=== PATIENT | female | born 1945 | race Caucasian/White ===

== ENCOUNTER → 2017-02-21 | Outpatient (CLI) | payer MEDICARE, BC ==
--- NOTE | 2017-02-21 14:12 | CT ---
EXAMINATION TYPE: CT cervical spine wo con DATE OF EXAM: 02/21/2017 COMPARISON: NONE HISTORY: Cervicalgia per order. Neck pain for one year per patient. CT DLP: 716 mGycm. Automated Exposure Control for Dose Reduction was Utilized. TECHNIQUE: CT scan of the cervical spine is obtained without contrast, axial images are obtained, sa gittal and coronal reformatted images are also reviewed. FINDINGS: Cervical spine is visualized in its entirety from C1 through upper thoracic levels, demonst rates satisfactory alignment without evidence of acute fracture or dislocation. Prevertebral soft ti ssue appears within normal limits. The C1-C2 articulation is within normal limits on the coronal eduin ges. Vertebral body heights are maintained. There is moderate to advanced disc space narrowing with subcho ndral cystic change and mild to moderate spurring C3-C4 through C6-C7 levels. Posterior spur disc com plex effacing anterior thecal sac at C6-C7 level on sagittal images. Review of axial images shows the C2-C3 level to appear within normal limits. Axial images at C3-C4 level show uncovertebral facet degenerative changes bilaterally causing mild to moderate bilateral neural foraminal narrowing. There is mild effacement anterior thecal sac due to p osterior disc herniation. Axial images at C4-C5 level show uncovertebral facet degenerative changes and posterior spur disc com plex with spondylolisthesis causing effacement of anterior thecal sac and mild to moderate right and moderate to severe left-sided neural foraminal narrowing. Axial images at C5-C6 level show posterior disc herniation effacing anterior thecal sac and causing m [id number]-djlyhebg bilateral neural foraminal narrowing. Axial images at C6-C7 level show right paracentral spur disc complex effacing anterior thecal sac and causing mild to moderate bilateral neural foraminal narrowing. Axial images at C7-T1 level are felt within normal limits. Thyroid gland is felt within normal limits. There is background mild emphysematous change in visualiz ed lung apices. IMPRESSION: Multilevel degenerative changes in the cervical spine as detailed above, C3-C4 through C6 -C7 levels.
== END ==
LOC: RADCTMAIN 12:16
PROVIDERS: ATTEND Family Medicine
DX: M47.812 Spondylosis without myelopathy or radiculopathy, cervical region (principal)
CPT/HCPCS: 72125

== ENCOUNTER → 2017-02-22 | Outpatient (CLI) | payer MEDICARE, BC ==
--- NOTE | 2017-02-23 10:27 | MM ---
Reason for exam: screening (asymptomatic). Last mammogram was performed 3 years and 5 months ago. History: Patient is postmenopausal. Excisional biopsy of the left breast. Physical Findings: A clinical breast exam by your physician is recommended on an annual basis and results should be correlated with mammographic findings. MG 3D Screening Mammo W/Cad Bilateral CC and MLO view(s) were taken. Prior study comparison: October 03, 2013, bilateral MG screening mammo w CAD. April 15, 2010, bilateral digital screening mammo w/CAD. There are scattered fibroglandular densities. There is chronic nodularity bilaterally axilla obscured benign lymph nodes. There is no discrete abnormality. ASSESSMENT: Benign, BI-RAD 2 RECOMMENDATION: Routine screening mammogram of both breasts in 1 year.
== END | disposition home or self-care (01) ==
LOC: RADMAMWWP 16:35
PROVIDERS: ATTEND Family Medicine
DX: Z12.31 Encounter for screening mammogram for malignant neoplasm of breast (principal)
CPT/HCPCS: 77063; G0202

== ENCOUNTER → 2017-05-12 | Outpatient (CLI) | payer BC, MEDICARE ==
--- NOTE | 2017-05-12 08:01 | US ---
EXAMINATION TYPE: US gallbladder DATE OF EXAM: 05/12/2017 COMPARISON: CT CLINICAL HISTORY: R10.11 RT upper quad pain. Pt states diarrhea post prandial EXAM MEASUREMENTS: Liver Length: 16.7 cm Gallbladder Wall: 0.2 cm CBD: 0.7 cm Right Kidney: 9.0 x 3.7 x 4.2 cm Pancreas: 3mm pancreatic duct visualized, tail obscured by overlying bowel gas Liver: wnl Gallbladder: wnl Evidence for sonographic Torres's sign: No CBD: wnl for pt's age Right Kidney: Possible parapelvic cyst= 1.8 x 1.4 x 2.1 cm versus extrarenal pelvis Right kidney shows normal cortical medullary differentiation. There is no ascites. Mild prominence of the pancreatic duct, consider follow-up. Common bile duct upper limit of normal for patient's age. IMPRESSION: Some minimal limitations to the exam. No abnormality evident to account for patient's sym ptoms. Additional findings above.
== END | disposition home or self-care (01) ==
LOC: RADUSWWP 07:19
PROVIDERS: ATTEND Family Medicine
DX: R94.8 Abnormal results of function studies of other organs and systems (principal); R10.11 Right upper quadrant pain
CPT/HCPCS: 76705

== ENCOUNTER → 2017-05-24 | Outpatient (CLI) | payer MEDICARE ==
--- NOTE | 2017-05-24 16:37 | XR ---
EXAMINATION TYPE: XR chest 2V DATE OF EXAM: 05/24/2017 COMPARISON: NONE HISTORY: Left-sided chest pain for 2 weeks after fall injury. TECHNIQUE: Frontal and lateral views of the chest are obtained. FINDINGS: There is chronic parenchymal change without suspicious focal air space opacity, pleural ef fusion, or pneumothorax seen. The cardiac silhouette size is within normal limits with ectatic thora cic aorta. Underlying scoliosis is present. IMPRESSION: Chronic changes without suspicious acute pulmonary process.
== END | disposition home or self-care (01) ==
LOC: RADXRMAIN 16:23
PROVIDERS: ATTEND Family Medicine
DX: R91.8 Other nonspecific abnormal finding of lung field (principal)
CPT/HCPCS: 71046

== ENCOUNTER → 2017-06-08 | Outpatient (CLI) | payer MEDICARE, BC ==
[2017-06-07 12:16] VITALS: BMI 33.1
[2017-06-08 12:47] VITALS: BP 132/75; PULSE 72; RESP 20
--- NOTE | 2017-06-08 13:27 | P.HPIM ---
History of Present Illness H&P Date: 06/08/17 Chief Complaint: neck pain This is a 71-year-old patient referred by Dr. Torres for chronic pain in neck and back of the head, no radiation to extremities. Patient has been taking medications from primary care physician including tramadol medications with some relief but does not like opioids. Patient denies adverse drug effects from medications. Patient also denies new-onset weakness, bowel/bladder incontinence, or any other signs or symptoms of cauda equina syndrome. There are no signs of acute intoxication, and no indications of medication diversion or overuse. Patient notes that pain worsens significantly with turning her head to left and right and improves with rest, ice and medication. Patient has used several types of medications for pain, including NSAIDS, OPIOIDS, TRAMADOL, and BENZOS (valium). Patient HAS NOT had surgery. Patient HAS NOT had injections previously. Patient HAS NOT had physical therapy recently. In addition to above, 13-point review of systems is also negative for chest pain , shortness of breath, changes in vision, changes in hearing, new onset weakness , abdominal pain, diarrhea, extreme fatigue, malaise, fever, skin changes, homicidal or suicidal ideation, or bowel or bladder incontinence. 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 Neuro: CN II-XII grossly intact, muscle strength lower extremities PRESERVED Past Medical History Past Medical History: GERD/Reflux, Hypertension Additional Past Medical History / Comment(s): numbness/tingling zeyad legs History of Any Multi-Drug Resistant Organisms: None Reported Past Surgical History: Section, Joint Replacement Additional Past Surgical History / Comment(s): zeyad knee replacement,zeyad cataracts Past Anesthesia/Blood Transfusion Reactions: No Reported Reaction Smoking Status: Former smoker - Past Family History Mother Family Medical History: Cancer Father History Unknown: Yes Medications and Allergies Home Medications Medication Instructions Recorded Confirmed Type Citalopram Hydrobromide 40 mg PO DAILY 06/07/17 06/08/17 History [Citalopram HBr] Gabapentin [Neurontin] 300 mg PO TID 06/07/17 06/08/17 History Losartan Potassium [Cozaar] 100 mg PO DAILY 06/07/17 06/08/17 History Multivit-Min/Iron/Folic/Lutein 1 each PO DAILY 06/07/17 06/08/17 History [Centrum Silver Women Tablet] Pantoprazole [Protonix] 40 mg PO DAILY 06/07/17 06/08/17 History amLODIPine BESYLATE [Norvasc] 10 mg PO DAILY 06/07/17 06/08/17 History Allergies Allergy/AdvReac Type Severity Reaction Status Date / Time hydrocodone [From Vicodin] Allergy Hallucinati Verified 06/07/17 12:06 ons Physical Exam Vitals: Vital Signs Pulse Resp BP Pulse Ox 06/08/17 12:39 72 20 132/75 98 Results Comments: MRI cervical spine without contrast demonstrates uncovertebral facet changes at the C3-C4 level, C4-C5 level. There is also posterior spur disc complex at the C4-C5 level causing effacement of the anterior thecal sac and moderate right and severe left-sided neural foraminal narrowing. At the C5-C6 level there is posterior disc herniation effacing the anterior thecal sac and causing mild to moderate bilateral neural foraminal narrowing. At the C6-C7 level there is right paracentral spur disc complex effacing the anterior thecal sac and causing moderate bilateral neural foraminal narrowing. Assessment and Plan (1) Neural foraminal stenosis of cervical spine Current Visit: Yes Status: Chronic Code(s): M99.81 - OTHER BIOMECHANICAL LESIONS OF CERVICAL REGION SNOMED Code(s): 734529631804 (2) Cervical spondylosis without myelopathy Current Visit: Yes Status: Chronic Code(s): M47.812 - SPONDYLOSIS W/O MYELOPATHY OR RADICULOPATHY, CERVICAL REGION SNOMED Code(s): 145787803 (3) Chronic pain syndrome Current Visit: Yes Status: Chronic Code(s): G89.4 - CHRONIC PAIN SYNDROME SNOMED Code(s): 036512185 Plan: Plan: 1. Explanation: Opioid and psychological risk scores were reviewed. Diagnoses , prognoses, and multiple treatment options including but not limited to physical therapy, interventional therapies, adjuvant medical therapies, narcotic medication therapies, and surgery were discussed with the patient and all questions were answered to the patient's satisfaction. 2. Opioid agreement: no opioids prescribed today 3. Counseling: The patient was counseled extensively on BODY MASS INDEX, EXERCISE. Specifically, the patient was instructed regarding the importance of weight control, and exercise in the context of both chronic pain and overall health. 4. Procedures: cervical MBB C3-C4, C4-C5, C5-C6 bilateral 5. Consultations: none 6. Investigations: none 7. Medications: none prescribed 8. Disposition: f/u for procedure as scheduled PQRS measures: 1-Patient's medications are documented in the chart. 2-Tobacco use is negative 3-Patient has had a pneumococcal vaccine. 4-Advanced care planning discussed, patient unable to give. 5-Opioid contract NOT signed with the patient. 6-Pain positive, follow-up visit or procedure scheduled 7-Patient's blood pressure measured and documented, and patient will follow up with the primary care due to hypertension. 8-Patient's weight was measured, and body mass index ABOVE the normal limits, and counseling was done. Patient instructed to follow up with PCP. 9-Patient WAS NOT identified as an unhealthy alcohol user. Time with Patient: Greater than 30
== END | disposition home or self-care (01) ==
LOC: PNWHC3 11:59
PROVIDERS: ATTEND Anesthesiology
DX: G89.4 Chronic pain syndrome (principal); M99.81 Other biomechanical lesions of cervical region; M47.812 Spondylosis without myelopathy or radiculopathy, cervical region; K21.9 Gastro-esophageal reflux disease without esophagitis; I10 Essential (primary) hypertension; Z87.891 Personal history of nicotine dependence; Z88.5 Allergy status to narcotic agent; Z79.899 Other long term (current) drug therapy
CPT/HCPCS: 99212

== ENCOUNTER → 2017-08-25 | Outpatient (CLI) | payer MEDICARE ==
--- NOTE | 2017-08-25 13:44 | XR ---
EXAMINATION TYPE: XR chest 2V DATE OF EXAM: 08/25/2017 COMPARISON: 05/24/2017 TECHNIQUE: PA and lateral views submitted. HISTORY: Pain FINDINGS: Subsegmental consolidation and tiny effusions or pleural thickening bilaterally. No overt failure. No pneumothorax. Ectasia of the aorta. Degenerative change the spine and diffuse osteopenia. IMPRESSION: 1. Bilateral lower lobe atelectasis or infiltrate with pleural thickening or tiny effusion.
--- NOTE | 2017-08-25 13:45 | XR ---
EXAMINATION TYPE: XR ribs LT DATE OF EXAM: 08/25/2017 COMPARISON: NONE HISTORY: Pain TECHNIQUE: 2 views submitted FINDINGS: The lower rib cage is nearly nondiagnostic due to positioning. However suspect the fracture anterolateral left ninth and 10th ribs. Basilar atelectasis and tiny effusion or pleural thickening noted. Scoliosis with multilevel degenerative disc disease. IMPRESSION: 1. Limited exam demonstrates findings suspicious for a anterolateral rib fracture left ninth and 10th ribs. 2. Basilar atelectasis or infiltrate with tiny effusion.
== END | disposition home or self-care (01) ==
LOC: RADXRMAIN 13:09
PROVIDERS: ATTEND Family Medicine
DX: R07.81 Pleurodynia (principal)
CPT/HCPCS: 71046

== ENCOUNTER 2019-07-18 10:14 | Inpatient (IN) | payer MEDICARE ==
[2019-07-18 11:14] LABS: Basophils % (A) 1 %; Eosinophils # (A) 0.1 k/uL (0-0.7); Eosinophils % (A) 1 %; HCT 44.4 % (34.0-46.0); HGB 14.7 gm/dL (11.4-16.0); Lymphocytes # (A) 1.2 k/uL (1.0-4.8); Lymphocytes % (A) 14 %; MCH 30.5 pg (25.0-35.0); MCHC 33.1 g/dL (31.0-37.0); MCV 92.2 fL (80.0-100.0); Mean Platelet Volume 7.8; Monocytes # (A) 0.4 k/uL (0-1.0); Monocytes % (A) 4 %; Neutrophils # (A) 6.8 k/uL (1.3-7.7); Neutrophils % (A) 79 %; Platelet Count 355 k/uL (150-450); RBC 4.81 m/uL (3.80-5.40); RDW 13.1 % (11.5-15.5); WBC 8.6 k/uL (3.8-10.6)
[2019-07-18 11:29] LABS: Albumin 4.8 g/dL (3.5-5.0); Calcium 10.7 mg/dL (8.4-10.2); Potassium 4.4 mmol/L (3.5-5.1); Total Bilirubin 0.5 mg/dL (0.2-1.3)
[2019-07-18] MEDS: PANTOPRAZOLE 40 MG/10 ML VIAL IVP SCH (12:25)
[2019-07-18] MEDS: SODIUM CHLORIDE 0.9% 1,000 ML IV SCH (12:26)
--- NOTE | 2019-07-18 15:22 | CT ---
EXAMINATION TYPE: CT brain wo con DATE OF EXAM: 07/18/2019 COMPARISON: 07/31/2015 INDICATION: Dizziness. DLP: 1106.4 mGycm, Automated exposure control for dose reduction was used. CONTRAST: None CT of the brain is performed utilizing 3 mm thick sections through the posterior fossa and 3 mm thick sections through the remaining calvarium. Study is performed within 24 hours of arrival to the hosp [facility]. No abnormal hyperdensity is present to suggest an acute intracranial hemorrhage. No mass lesion is evident. No acute infarcts are evident. There is mild periventricular white matter hypodensity, likely on the basis of chronic white matter ischemic change. This was present previously. Ventricles and sulci are appropriate for the patient age. Paranasal sinuses and mastoid air cells within the [id number]-pvct are clear. IMPRESSIONS: 1. Mild chronic appearing periventricular white matter ischemic type changes. 2. No acute intracranial changes.
--- NOTE | 2019-07-18 16:32 | US ---
EXAMINATION TYPE: US carotid duplex BILAT DATE OF EXAM: 07/18/2019 COMPARISON: 07/31/2015 CLINICAL HISTORY: dizziness. HTN- controlled with meds EXAM MEASUREMENTS: RIGHT: Peak Systolic Velocity (PSV) cm/sec ----- Right CCA: 60.7 ----- Right ICA: 110.8 ----- Right ECA: 50.3 ICA/CCA ratio: 1.8 RIGHT: End Diastole cm/sec ----- Right CCA: 16.2 ----- Right ICA: 25.4 ----- Right ECA: 0.0 LEFT: Peak Systolic Velocity (PSV) cm/sec ----- Left CCA: 63.3 ----- Left ICA: 155.4 ----- Left ECA: 92.7 ICA/CCA ratio: 2.5 LEFT: End Diastole cm/sec ----- Left CCA: 13.6 ----- Left ICA: 41.6 ----- Left ECA: 0.0 VERTEBRALS (direction of flow): Right Vertebral: Antegrade Left Vertebral: Antegrade Rhythm: Normal Distal curve seen in left ICA. Elevated left distal ICA which could be due to the ICA curvature. Stacey que seen distal CCA and left bulb. IMPRESSION: 1. There may be some increased narrowing from comparison due to tortuosity in the left internal carot id artery. This would have moderate narrowing between 50 and 69%. Correlate with the patient's clinic al symptoms. Actual narrowing could be further evaluated with CTA of the neck. Criteria for Assigning % of Stenosis / Diameter reduction (Estimation based on the indirect measurements of the internal carotid artery velocities (ICA PSV). 1. Normal (no stenosis)=ICA PSV < 125 cm/s: ratio < 2.0: ICA EDV<40 cm/s. 2. Less than 50% stenosis=ICA PSV < 125 cm/s: ratio < 2.0: ICA EDV<40 cm/s. 3. 50 to 69% stenosis=ICA PSV of 125 to 230 cm/s: ration 2.0 ? 4.0: ICA EDV 40-100 cm/s. 4. Greater than 70% stenosis to near occlusion= ICA PSV > 230 cm/s: ratio > 4.0: ICA EDV > 100 cm/s. 5. Near occlusion= ICA PSV velocities may be low or undetectable: variable ratio and ICA EDV. 6. Total occlusion=unable to detect flow.
--- NOTE | 2019-07-18 19:43 | P.CNNES ---
History of Present Illness Consult date: 07/18/19 Requesting physician: Niurka Pan Reason for Consult: Dizziness History of Present Illness: Patient is a 73-year-old female who states that on Tuesday, 2 days ago at night she was getting ready to go to bed. She was putting pajamas on, as she always does, when she suddenly felt everything started spinning. She laid down in bed, and felt funny. She also felt nauseous. Next day on Tuesday, she got up and symptoms were still there. She continued to have symptoms whenever she would move her head. The symptoms would be worse, if she was moving her head fastly, but not as severe if she was moving it slowly. If she was constantly moving her head, was making her nauseous. She was feeling pain in her neck. Patient denies any slurred speech facial droop, diplopia, visual disturbance, or focal numbness tingling or weakness. She spoke to her primary physician this morning, who recommended her to go to the ER. Patient states that when she bends over, like when she was washing her hair, make symptoms worse. At present, looking down, getting up makes her very dizzy. Shaking her head also makes her dizzy. Rolling over to the right makes her dizzy. Patient underwent CT head showed mild chronic-appearing periventricular white matter ischemic type changes. No acute intracranial process. On my review, all visualized paranasal sinuses and external auditory canal are clear. Carotid Doppler showed some increased narrowing from comparison due to tortuosity of the left ICA. This would have moderate narrowing between 50-69%. Correlate clinically. Patient's CBC, CMP and TSH normal. Patient has history of hypertension, denies diabetes. She does not drink alcohol. She has smoked three fourth pack per day for 20 years, quit in March 2019. Review of Systems As per HPI. Patient denies any tinnitus, hearing loss, pain or infection in the ear. Patient states that her right ear sometimes itches. Denies chest pain shortness of breath wheezing or cough. Past Medical History Past Medical History: GERD/Reflux, Hypertension History of Any Multi-Drug Resistant Organisms: None Reported Past Surgical History: Section, Orthopedic Surgery Additional Past Surgical History / Comment(s): both knees Past Anesthesia/Blood Transfusion Reactions: No Reported Reaction Past Psychological History: No Psychological Hx Reported Smoking Status: Former smoker Medications and Allergies Home Medications Medication Instructions Recorded Confirmed Type Losartan Potassium [Cozaar] 100 mg PO DAILY 06/07/17 07/18/19 History Multivit-Min/Iron/Folic/Lutein 1 each PO DAILY 06/07/17 07/18/19 History [Centrum Silver Women Tablet] Pantoprazole [Protonix] 40 mg PO DAILY 06/07/17 07/18/19 History amLODIPine BESYLATE [Norvasc] 10 mg PO DAILY 06/07/17 07/18/19 History Allergies Allergy/AdvReac Type Severity Reaction Status Date / Time hydrocodone [From Vicodin] Allergy Hallucinati Verified 07/18/19 11:48 ons Physical Examination - Vital Signs Vital Signs: Vital Signs Temp Pulse Resp BP Pulse Ox 07/18/19 16:00 98.1 F 78 16 113/69 98 07/18/19 12:00 97.9 F 94 16 100/64 97 07/18/19 11:23 89 07/18/19 10:43 97.9 F 89 16 100 Intake and Output 07/18/19 07/18/19 07/18/19 06:59 14:59 22:59 Intake Total 240 Balance 240 Intake: IV 0 Sodium Chloride 0.9% 1, 0 000 ml @ 50 mls/hr IV . Q20H [facility] Rx#:[id number] Oral 240 Other: Weight 90.718 kg Patient is an elderly female, in no acute distress. Patient is alert awake oriented to time place and person. Speech and language functions are normal. Attention, concentration and fund of knowledge is adequate. On cranial nerve examination pupils are round and reacting to light. Visual leo are full on confrontation. Extraocular muscles are intact. Patient did have some slow horizontal nystagmus at end gaze when she was feeling dizzy. Face is symmetric, tongue protrudes the midline. Palatal elevation sensation normal. Hearing and shoulder shrug normal. On muscle strength testing, there is no pronator drift and the strength is normal in arms and legs distally and proximally. Reflexes are 1+ and plantars downgoing. Sensory to touch is equal with no neglect. No ataxia for eobckw-jq-[id number]. Gabz-oa-owew appears slightly off on the left. Tone and bulk of muscles normal. Patient walks fairly stable with normal base, and stride, although has difficulty walking tandem. There is no carotid bruit, S1 and S2 audible. Peripheral pulses present. Chest is clear. Abdomen soft nontender. Results - Laboratory Findings CBC and BMP: 07/18/19 11:03 07/18/19 11:03 Abnormal Lab Findings: Abnormal Labs 07/18/19 11:03 BUN 28 H Glucose 109 H Calcium 10.7 H Assessment and Plan Assessment: * 73-year-old female admitted with a 2-day history of intermittent vertigo with nausea. Symptoms somewhat positional, therefore suggestive of possible BPPV. Rule out cerebellar CVA. Patient denies any previous history of such vertigo. * Hypertension * Hypercalcemia with calcium 10.7. * Tobacco user, quit March 2019. Plan: * MRI of the brain, rule out CVA. * Start Aspirin 81 mg., due to her history of vascular risk factors. * Meclizine as needed. * Repeat calcium and ionized calcium in a.m. * If the positional vertigo persists, then can consider vestibular rehabilitation (pending MRI results).
[2019-07-18] MEDS: ASPIRIN 81 MG PO SCH (20:02)
[2019-07-18 20:25] VITALS: RESP 18
[2019-07-18] MEDS ORDERED: ZOLPIDEM 5 MG TAB PO PRN (22:46)
[2019-07-19 04:27] LABS: Hemoglobin A1C 5.3 % (4.0-6.0)
[2019-07-19] MEDS: SODIUM CHLORIDE 0.9% 1,000 ML IV SCH (05:27)
[2019-07-19 06:06] LABS: Basophils % (A) 1 %; Eosinophils # (A) 0.2 k/uL (0-0.7); Eosinophils % (A) 3 %; HCT 40.2 % (34.0-46.0); HGB 12.8 gm/dL (11.4-16.0); Lymphocytes # (A) 1.7 k/uL (1.0-4.8); Lymphocytes % (A) 29 %; MCH 29.6 pg (25.0-35.0); MCHC 31.8 g/dL (31.0-37.0); MCV 93.3 fL (80.0-100.0); Mean Platelet Volume 7.5; Monocytes # (A) 0.4 k/uL (0-1.0); Monocytes % (A) 7 %; Neutrophils # (A) 3.3 k/uL (1.3-7.7); Neutrophils % (A) 57 %; Platelet Count 261 k/uL (150-450); RBC 4.31 m/uL (3.80-5.40); RDW 12.8 % (11.5-15.5); WBC 5.8 k/uL (3.8-10.6)
[2019-07-19 06:20] LABS: Calcium 9.8 mg/dL (8.4-10.2); Potassium 4.6 mmol/L (3.5-5.1)
[2019-07-19] MEDS: ASPIRIN 81 MG PO SCH (07:58)
[2019-07-19] MEDS: PANTOPRAZOLE 40 MG/10 ML VIAL IVP SCH (07:59)
[2019-07-19] MEDS ORDERED: LOSARTAN 50 MG TAB PO SCH (09:00)
[2019-07-19] MEDS ORDERED: PANTOPRAZOLE 40 MG TABLET PO SCH (09:00)
[2019-07-19] MEDS ORDERED: amLODIPine 10 MG TAB PO SCH (09:00)
[2019-07-19] MEDS ORDERED: MULTIVITAMINS, THERA 1 EACH TAB PO SCH (09:00)
--- NOTE | 2019-07-19 10:01 | HP ---
HISTORY AND PHYSICAL HISTORY OF PRESENT ILLNESS: 73-year-old white female came in for severe dizziness, spinning, felt funny. When she turns her neck, her dizziness gets way worse. When she turns her eye [id number], she also has dizziness. She denies any slurred speech, facial droop but the eyes cause dizziness when she moves [id number]. CT shows periventricular white matter ischemic changes. She is admitted for TIA versus CVA. Carotid ultrasound so far shows 50 to 69% blockage on the left. History of hypertension. No alcohol. She smoked 3/4 pack a day for 20 years. PAST MEDICAL HISTORY: GERD, hypertension and obesity. SURGICAL HISTORY: , orthopedic surgery. MEDICINES AT HOME: Cozaar 100 mg daily. Protonix 40 mg daily. Amlodipine 10 mg daily. Multivitamin daily. ALLERGIES: VICODIN. PHYSICAL EXAMINATION: Vital signs: Temp 97 to 98, pulse 78-94, respiratory 16 to 18, blood pressure is 100s- 110s over 60s. O2 97 to 98 on room air. GENERAL: She is an elderly white female in no acute distress. Alert and orient x3. CARDIOVASCULAR S1, S2. MUSCULOSKELETAL is tender to palpation, paracervical muscles. She has ophthalmologic nystagmus causing dizziness. Face symmetric. Tongue is midline. CARDIOVASCULAR: S1, S2. LUNGS are clear. ENDOCRINE: BMI is over 40. HEMATOLOGY: Negative Homans. PSYCH: Fair mood and affect. LABORATORY DATA: Labs show BUN 20, creatinine 0.33. White count 8.6, hemoglobin 14.7. ASSESSMENT AND PLAN: 1. Rule out cerebrovascular accident, transient ischemic attack. 2. Carotid stenosis. 3. Hypertension acceleration. 4. Possible vertigo. 5. Hypercalcemia. 6. Nicotine addiction. 7. MRI of the brain is pending. 8. Aspirin is being given. 9. Meclizine is being given. 10.Repeat calcium. 11.Possible vestibular rehab. 12.Await for MRI to rule out further worsening of a cerebrovascular accident. 13.Possible CT of the carotid arteries will have to be done to get more definitive reading on the carotid stenosis on the left side. 14.Thyroid normal. 15.Please see further orders. MMODL / IJN: [id number] /
--- NOTE | 2019-07-19 14:22 | EEG ---
ELECTROENCEPHALOGRAM REPORT DATE OF SERVICE: 07/19/2019 PREAMBLE: This is a 73-year-old female with intermittent dizziness. This study is performed to rule out any epileptiform activity. EEG FINDINGS: This is a 21 channel routine EEG recording in a patient utilizing 10/20 international system with bipolar and referential montages. The background consists of well developed, well regulated, moderate voltage activity at 12-13 hertz alpha. Background is posterior dominant and reactive to eye opening and closing. Photic driving response was seen. Drowsiness was seen during most of the later part of study with mixed alpha theta frequency. Deeper stages of sleep were not seen. Hyperventilation was not done. No focal or generalized epileptiform activity was seen. EKG rhythm lead revealed no arrhythmia. IMPRESSION: This is a normal awake and drowsy EEG. MMODL / IJN: [id number] /
--- NOTE | 2019-07-19 14:23 | MR ---
MR brain without contrast HISTORY: Vertigo, cephalgia Multiplanar multisequence imaging through the brain, fast brain protocol utilized due to patient's cl austrophobia, and inability to cooperate with exam. Correlation to CT brain 07/18/2019 There is no restricted diffusion. Cortical atrophy is present. No hemorrhage or hydrocephalus present . Periventricular white matter shows hyperintensity on inversion recovery T2-weighted sequences, ther e are scattered areas in the subcortical, juxtacortical, periventricular location that show similar h yperintensity and inversion recovery and T2-weighted sequences. Cerebellopontine angles, corpus callo sum, pituitary, cervical medullary junction are within normal limits. The orbits show symmetric appea rodney. There are normal vascular flow voids. IMPRESSION: Nonspecific white matter demyelination likely due to chronic small vessel ischemic change . Age-related atrophy.
[2019-07-19 18:30] VITALS: BP 118/73; PULSE 90; TEMP 98.1
--- NOTE | 2019-07-19 20:12 | P.PN ---
Subjective Progress Note Date: 07/19/19 Patient states she is feeling much better. Wants to go home. Objective - Vital Signs Vital signs: Vital Signs Temp 98.1 F 07/19/19 12:35 Pulse 90 07/19/19 16:00 Resp 18 07/19/19 16:00 BP 118/73 07/19/19 16:00 Pulse Ox 96 07/19/19 16:00 Intake & Output 07/19/19 07/19/19 07/20/19 06:59 18:59 06:59 Intake Total 400 360 Balance 400 360 Weight 93.6 kg Intake: IV 400 Sodium Chloride 0.9% 1, 400 000 ml @ 50 mls/hr IV . Q20H ROSEY Rx#:[id number] Oral 360 Other: Voiding Method Toilet # Voids 1 2 - Exam Nonfocal. - Labs CBC & Chem 7: 07/19/19 05:36 07/19/19 05:36 Labs: Abnormal Lab Results - Last 24 Hours (Table) 07/19/19 Range/Units 05:36 BUN 29 H (7-17) mg/dL Assessment and Plan Assessment: * Benign peripheral positional vertigo. * Hypertension * Hypercalcemia resolved. * Tobacco user, quit March 2019. Plan: * MRI of the brain was normal with no acute ischemic process. Some small vessel disease. * Continue Aspirin 81 mg., due to her history of vascular risk factors. * Meclizine as needed. * Repeat calcium normal 9.8. * If the positional vertigo persists, then can consider vestibular rehabilitation. * Neurologically clear for discharge.
== END 2019-07-19 17:04 | disposition home or self-care (01) | DRG 149 ==
LOC: 3SCARD 10:30
PROVIDERS: ADMIT Family Medicine; ATTEND Family Medicine
DX: H81.10 Benign paroxysmal vertigo, unspecified ear (principal); E66.9 Obesity, unspecified; K21.9 Gastro-esophageal reflux disease without esophagitis; E83.52 Hypercalcemia; F17.200 Nicotine dependence, unspecified, uncomplicated; I10 Essential (primary) hypertension; I65.22 Occlusion and stenosis of left carotid artery; Z11.59 Encounter for screening for other viral diseases; Z79.899 Other long term (current) drug therapy; Z88.5 Allergy status to narcotic agent; Z68.34 Body mass index [BMI] 34.0-34.9, adult
CPT/HCPCS: 70450; 70551; 80048; 80053; 82607; 83036; 83735; 84443; 85025; 87635; 93880; 95816

== ENCOUNTER → 2020-11-01 | Outpatient (CLI) | payer MEDICARE ==
--- NOTE | 2020-11-01 12:43 | XR ---
EXAMINATION TYPE: XR chest 2V DATE OF EXAM: 11/01/2020 COMPARISON: Chest x-ray 08/25/2017 HISTORY: J 44.9 TECHNIQUE: Frontal and lateral views of the chest are obtained. FINDINGS: Patient is mildly rotated. Suspect some eventration of the right hemidiaphragm as on prior exam. There is no focal air space opacity, pleural effusion, or pneumothorax seen. The cardiac silho uette size is within normal limits. The aorta is dense. Suspect a posterior diaphragmatic hernia. Pro minent lung lines suggest underlying COPD. Some strand-like densities are present at the posterior kathy ng bases. The osseous structures are intact, there is a spinal curvature. IMPRESSION: Probable basilar atelectasis or scarring, COPD, possible posterior diaphragmatic hernia
--- NOTE | 2020-11-03 07:49 | US ---
EXAMINATION TYPE: US carotid duplex BILAT DATE OF EXAM: 11/01/2020 COMPARISON: US's CLINICAL HISTORY: I65.29 Carotid stenosis. EXAM MEASUREMENTS: RIGHT: Peak Systolic Velocity (PSV) cm/sec ----- Right CCA: 82.0 ----- Right ICA: 87.5 ----- Right ECA: 96.5 ICA/CCA ratio: 1.1 RIGHT: End Diastole cm/sec ----- Right CCA: 12.8 ----- Right ICA: 21.5 ----- Right ECA: 0.0 LEFT: Peak Systolic Velocity (PSV) cm/sec ----- Left CCA: 76.5 ----- Left ICA: 184.5 ----- Left ECA: 113.5 ICA/CCA ratio: 2.4 LEFT: End Diastole cm/sec ----- Left CCA: 17.1 ----- Left ICA: 54.4 ----- Left ECA: 0.0 VERTEBRALS (direction of flow): Right Vertebral: Antegrade Left Vertebral: Antegrade Rhythm: Normal Mildly elevated left distal ICA felt due to tortuosity. IMPRESSION: No evidence for hemodynamically significant stenosis. NASCET criteria was used in interpretation of this exam? Criteria for Assigning % of Stenosis / Diameter reduction (Estimation based on the indirect measurements of the internal carotid artery velocities (ICA PSV). 1. Normal (no stenosis)=ICA PSV < 125 cm/s: ratio < 2.0: ICA EDV<40 cm/s. 2. Less than 50% stenosis=ICA PSV < 125 cm/s: ratio < 2.0: ICA EDV<40 cm/s. 3. 50 to 69% stenosis=ICA PSV of 125 to 230 cm/s: ration 2.0 ? 4.0: ICA EDV 40-100 cm/s. 4. Greater than 70% stenosis to near occlusion= ICA PSV > 230 cm/s: ratio > 4.0: ICA EDV > 100 cm/s. 5. Near occlusion= ICA PSV velocities may be low or undetectable: variable ratio and ICA EDV. 6. Total occlusion=unable to detect flow.
== END | disposition home or self-care (01) ==
LOC: RADUSWWP 10:48
PROVIDERS: ATTEND Family Medicine
DX: J44.9 Chronic obstructive pulmonary disease, unspecified (principal); I65.29 Occlusion and stenosis of unspecified carotid artery
CPT/HCPCS: 71046; 93880

== ENCOUNTER → 2020-12-25 | Outpatient (CLI) | payer MEDICARE ==
--- NOTE | 2020-12-25 13:34 | CT ---
EXAMINATION TYPE: CT chest w con DATE OF EXAM: 12/25/2020 COMPARISON: None HISTORY: COPD CT DLP: 547 mGycm Automated exposure control for dose reduction was used. CONTRAST: CT scan of the chest is performed with IV Contrast, patient injected with 100 ml mL of Isovue 300. FINDINGS: LUNGS: The lungs are grossly clear, there is no concerning parenchymal mass or nodule identified. T here is no pleural effusion or pneumothorax seen. The tracheobronchial tree is patent. MEDIASTINUM: 1.3 cm anterior mediastinal lymph node. No additional lymph nodes greater than 1 cm. No pericardial effusion is seen. Thoracic aorta is of normal caliber. The heart is not enlarged. Fixed small hiatal hernia. UPPER ABDOMEN: No significant abnormality appreciated. OTHER: No additional significant abnormality is seen. IMPRESSION: 1. Nonspecific anterior mediastinal lymph node measuring 1.3 cm.
== END ==
LOC: RADCTMAIN 11:38
PROVIDERS: ATTEND Family Medicine
DX: J44.9 Chronic obstructive pulmonary disease, unspecified (principal)
CPT/HCPCS: 82565; 84520; 71260; 36415; Q9967

== ENCOUNTER → 2021-01-01 | Outpatient (CLI) | payer MEDICARE ==
[~2021-01-01] MED LIST: REGADENOSON 0.4 MG/5 ML SYRINGE IV PRN
--- NOTE | 2021-01-01 10:39 | ECHOF ---
Referral Reason:R94.31 abn ekg MEASUREMENTS -------- HEIGHT: 162.6 cm WEIGHT: 90.7 kg BP: RVIDd: 2.8 cm (< 3.3) IVSd: 1.1 cm (0.6 - 1.1) LVIDd: 3.7 cm (3.9 - 5.3) LVPWd: 1.0 cm (0.6 - 1.1) IVSs: 1.4 cm LVIDs: 2.6 cm LVPWs: 1.6 cm LAESV Index (A-L): 27.06 ml/m Ao Diam: 2.8 cm (2.0 - 3.7) AV Cusp: 2.0 cm (1.5 - 2.6) LA Diam: 4.0 cm (2.7 - 3.8) MV EXCURSION: 17.310 mm (> 18.000) MV EF SLOPE: 86 mm/s (70 - 150) EPSS: 1.0 cm MV E Addy: 0.59 m/s MV DecT: 215 ms MV A Addy: 1.03 m/s MV E/A Ratio: 0.57 RAP: 5.00 mmHg RVSP: 36.82 mmHg FINDINGS -------- Sinus rhythm. This was a technically adequate study. The left ventricular size is normal. Left ventricular wall thickness is normal. Overall left vent ricular systolic function is normal with, an EF between 55 - 60 %. The diastolic filling pattern is normal for the age of the patient 8.99. The right ventricle is normal in size. Normal LA size by volume 22+/-6 ml/m2. The right atrial size is normal. Interatrial and interventricular septum intact. The aortic valve is trileaflet and appears structurally normal. There is no evidence of aortic regu rgitation. There is no evidence of aortic stenosis. No mitral regurgitation. Mild tricuspid regurgitation present. There is borderline pulmonary artery hypertension. The righ t ventricular systolic pressure, as measured by Doppler, is 36.82mmHg. There is no pulmonic regurgitation present. The aortic root size is normal. Normal inferior vena cava with normal inspiratory collapse consistent with estimated right atrial pre ssure of 5 mmHg. There is no pericardial effusion. CONCLUSIONS -------- 1. The left ventricular size is normal. 2. Left ventricular wall thickness is normal. 3. Overall left ventricular systolic function is normal with, an EF between 55 - 60 %. 4. The diastolic filling pattern is normal for the age of the patient 8.99 5. Mild tricuspid regurgitation present. 6. There is borderline pulmonary artery hypertension. 7. The right ventricular systolic pressure, as measured by Doppler, is 36.82mmHg. MILK HANDLER: Jazmín Guillory RDCS
--- NOTE | 2021-01-01 11:11 | NM ---
"EXAMINATION TYPE: NM stress lexiscan cardiolite DATE OF EXAM: 01/01/2021 COMPARISON: NONE HISTORY: Abnormal EKG, R94.31 TECHNIQUE: After the intravenous administration of 10.1 mCi Tc 99m Sestamibi - Cardiolite resting SP ECT images acquired 45 minutes post injection. The patient received 0.4mg Lexiscan, 26.1 mCi Tc 99m Sestamibi - Stress images obtained [address] injection FINDINGS: Review of stress and rest SPECT images demonstrates only mild decreased uptake along the inferior api rosy left ventricular myocardium towards the lateral margin at stress as compared to rest images. Gat ed analysis shows normal wall motion with an estimated left ventricular ejection fraction of 53 %. IMPRESSION: Some mild pharmacologically-induced left ventricular myocardial ischemia is suspected as described. A Yellow level critical message alert has been initiated for Vernon Torres MD via the [employer] 36 0 | Critical Results System on 01/01/2021 11:08 AM. This message alert has been sent to Vernon pinzon MD via the preferences provided by the clinician for the receipt of Radiology Critical Findings. [facility] ID [id number]."
--- NOTE | 2021-01-01 15:38 | EST ---
EXERCISE STRESS AGE: 75 SEX: F HT: 5'4" WT: 200 lbs. PROTOCOL: Lexiscan STAGE: NA DURATION OF EXERCISE: 5 minutes HEART RATE REST: 85 BLOOD PRESSURE REST: 147/76 MAXIMUM HEART RATE ACHIEVED: 91 MAXIMUM BLOOD PRESSURE: 155/77 85% MPHR: 122 100% MPHR: 143 METS: NA INDICATIONS: Abnormal EKG. CLINICAL INFORMATION: BASELINE EKG SHOWS SINUS RHYTHM WITH POOR R-WAVE PROGRESSION. PATIENT WAS GIVEN INTRAVENOUS LEXISCAN PER PROTOCOL, DID NOT HAVE CHEST PAIN OR DIAGNOSTIC ST-SEGMENT DEPRESSION.: CONCLUSIONS: 1. Negative stress test by EKG criteria. 2. Cardiolite portion of the stress test will be reported separately. MMODL / IJN: [id number] /
== END | disposition home or self-care (01) ==
LOC: RADNMMAIN 07:57
PROVIDERS: ATTEND Family Medicine
DX: I36.1 Nonrheumatic tricuspid (valve) insufficiency (principal)
CPT/HCPCS: 93017; 93306; 78452; A9500; J2785

== ENCOUNTER 2021-01-20 10:29 | Day surgery (SDC) | payer MEDICARE ==
[2021-01-19 08:34] VITALS: BMI 34.3
[~2021-01-20 10:29] MED LIST changes: +ALPRAZolam 0.25 MG TAB PO PRN; +ALPRAZolam 0.5 MG TAB PO PRN; +ASPIRIN 325 MG TAB PO STA; +ATORVASTATIN 80 MG TAB PO STA; +NITROGLYCERIN SL TABS 0.4 MG TAB SUBLINGUAL PRN; -REGADENOSON 0.4 MG/5 ML SYRINGE IV PRN; +SODIUM CHLORIDE 0.9% 1,000 ML in EMPTY BAG 1 BAG IV SCH
[2021-01-20 10:55] VITALS: RESP 18; TEMP 98.6
[2021-01-20 11:25] LABS: Basophils # (A) 0.1 k/uL (0-0.2); Basophils % (A) 1 %; Eosinophils # (A) 0.1 k/uL (0-0.7); Eosinophils % (A) 2 %; HCT 45.8 % (34.0-46.0); HGB 14.6 gm/dL (11.4-16.0); Lymphocytes # (A) 1.9 k/uL (1.0-4.8); Lymphocytes % (A) 24 %; MCH 29.8 pg (25.0-35.0); MCHC 31.9 g/dL (31.0-37.0); MCV 93.5 fL (80.0-100.0); Monocytes # (A) 0.5 k/uL (0-1.0); Monocytes % (A) 7 %; Neutrophils # (A) 5.2 k/uL (1.3-7.7); Neutrophils % (A) 65 %; Platelet Count 322 k/uL (150-450); RDW 13.4 % (11.5-15.5)
[2021-01-20 11:36] LABS: Calcium 9.8 mg/dL (8.4-10.2); Potassium 4.8 mmol/L (3.5-5.1)
[2021-01-20] MEDS ORDERED: fentaNYL (PF) 50 MCG/ML 2 ML AMP ONE (12:19)
[2021-01-20] MEDS ORDERED: VERAPAMIL 2.5 MG/ML 2 ML AMP ONE (12:19)
[2021-01-20] MEDS ORDERED: LIDOCAINE 1% INJ 10MG/ML (20 ML MDV) ONE (12:19)
[2021-01-20] MEDS ORDERED: HEPARIN SODIUM 1,000 UN/ML (10ML VL) ONE (12:26)
[2021-01-20] MEDS ORDERED: MIDAZOLAM 2 MG/2 ML VIAL IV ONE (12:35)
[2021-01-20] MEDS ORDERED: fentaNYL (PF) 50 MCG/ML 2 ML AMP IV ONE (12:37)
[2021-01-20] MEDS ORDERED: LIDOCAINE 1% INJ 10MG/ML (20 ML MDV) SQ ONE (12:37)
[2021-01-20] MEDS ORDERED: VERAPAMIL SYRINGE (5 MG/10 ML) INTRAARTER ONE (12:40)
[2021-01-20] MEDS ORDERED: IOPAMIDOL-370 125ML BTL INJ ONE (12:47)
[2021-01-20] MEDS ORDERED: RX INFO: IV CONTRAST WAS GIVEN 1 EACH MISC MISCELLANE PRN (12:54)
[2021-01-20] MEDS ORDERED: SODIUM CHLORIDE 0.9% 1,000 ML IV SCH (13:00)
[2021-01-20 15:48] VITALS: BP 102/64; PULSE 64
--- NOTE | 2021-01-20 19:57 | CC ---
CARDIAC CATHETERIZATION REPORT DATE OF SERVICE: 01/20/2021 PERFORMING PHYSICIAN: Brooks Issa M.D. PROCEDURES PERFORMED: 1. Selective right and left coronary angiogram. 2. Left heart catheterization. INDICATION: Chest discomfort in this 75-year-old female patient who was experiencing chest discomfort and underwent myocardial perfusion imaging stress test that revealed anterior ischemia. APPROACH: Right radial artery. COMPLICATIONS: None. LEVEL OF SEDATION: Moderate, with sedation length of 12 minutes. PROCEDURE DESCRIPTION: After obtaining informed consent, the patient was brought to the cardiac laborer/key man. The right radial artery was cannulated using micropuncture technique under ultrasound guidance. The micropuncture wire passed easily. Then I placed a 6-Bengali sheath at the right radial artery. I did give the patient 2 mg of verapamil IA and 6000 units of heparin IV. Selective right and left coronary angiogram was performed using JR4 and JL3.5 catheters. The procedure was completed without any complication. SELECTIVE CORONARY ANGIOGRAM: 1. The RCA is a large-caliber vessel. It is a dominant vessel. The RCA is angiographically normal. Distally it bifurcates into PDA and PLV branches. Both appeared to be angiographically normal. 2. The left main is angiographically normal. It bifurcates into LCX and LAD. 3. The LCX is a large-caliber vessel. The LCX system appeared to be angiographically normal. It gives rise to first and second obtuse marginal branches; all appeared to be angiographically normal. 4. The LAD is a large-caliber vessel. The LAD is angiographically normal. In the mid portion it gives rise to a large diagonal, which seems to be angiographically normal. 5. HEMODYNAMICS: The LVEDP was about 10 to 12 mmHg without significant gradient across the aortic valve. CONCLUSION: 1. Normal coronary angiogram. 2. Normal left-sided filling pressure. POST-PROCEDURE MANAGEMENT: 1. Medical treatment. 2. Follow up with the patient. MMODL / IJN: [id number] /
== END 2021-01-20 16:00 | disposition home or self-care (01) ==
LOC: CATHCVL 10:29
PROVIDERS: ATTEND Internal Medicine Interventional Cardiology
DX: R07.89 Other chest pain (principal); Z20.822 Contact with and (suspected) exposure to COVID-19
CPT/HCPCS: 93458; 80048; 85025; 87635; C1894; C1769; J2250; J2001; J3010; J1644; Q9967

== ENCOUNTER → 2023-06-14 | Outpatient (CLI) | payer MEDICARE ==
--- NOTE | 2023-06-15 10:17 | CA ---
Transthoracic Echo Report Name: Sandi Wylie Age: 77 Gender: F : 1945 Exam Date: 06/14/2023 11:56 Exam Location: [facility] Ht (in): 63 Wt (lb): 160 Ordering Physician: Vernon Torres MD Attending/Referring Phys: Inseamer Aracely Hayes RDCS Procedure CPT: Indications: R94.31 ABNORMAL ELECTROCARDIOGRAM [ECG] [EKG] Cardiac Hx: Technical Quality: Contrast 1: Total Dose (mL): Contrast 2: Total Dose (mL): MEASUREMENTS (Male / Female) Normal Values 2D ECHO LV Diastolic Diameter PLAX 4.4 cm 4.2 - 5.9 / 3.9 - 5.3 cm LV Systolic Diameter PLAX 3.0 cm IVS Diastolic Thickness 1.0 cm 0.6 - 1.0 / 0.6 - 0.9 cm LVPW Diastolic Thickness 1.0 cm 0.6 - 1.0 / 0.6 - 0.9 cm LV Relative Wall Thickness 0.4 LVOT Diameter 1.9 cm Aortic Root Diameter 3.1 cm LA Systolic Diameter LX 3.5 cm 3.0 - 4.0 / 2.7 - 3.8 cm DOPPLER AV Peak Velocity 157.1 cm/s AV Peak Gradient 9.9 mmHg AV Mean Velocity 109.4 cm/s AV Mean Gradient 5.4 mmHg AV Velocity Time Integral 30.3 cm LVOT Peak Velocity 111.0 cm/s LVOT Peak Gradient 4.9 mmHg LVOT Velocity Time Integral 22.2 cm LVOT Stroke Volume 64.1 cm??? LVOT Stroke Volume Index 36.5 ml/m??? AV Area Cont Eq vti 2.1 cm??? AV Area Cont Eq pk 2.0 cm??? Mitral E Point Velocity 106.3 cm/s Mitral A Point Velocity 143.0 cm/s Mitral E to A Ratio 0.7 MV Deceleration Time 238.9 ms MV E' Velocity 7.2 cm/s Mitral E to MV E' Ratio 14.8 TR Peak Velocity 278.6 cm/s TR Peak Gradient 31.0 mmHg PV Peak Velocity 110.4 cm/s PV Peak Gradient 4.9 mmHg FINDINGS Left Ventricle Mildly increased posterior wall thickness. Left ventricular ejection fraction is estimated at 55-60 %. Mild concentric left ventricular hypertrophy. Right Ventricle Normal right ventricular size. Right Atrium Mild right atrial dilatation. Left Atrium Normal left atrial size. Mitral Valve Trace mitral regurgitation. Aortic Valve No aortic valve stenosis or regurgitation. Tricuspid Valve Mild tricuspid regurgitation. Pulmonic Valve No pulmonic regurgitation. Pericardium No pericardial effusion. Aorta Normal size aortic root. CONCLUSIONS Normal LV size and systolic function. Mild concentric LVH. Minimal mitral and tricuspid regurgitation. No pericardial effusion. No pulmonary hypertension Previewed by: Dr. Junito Tong MD (Electronically Signed) Final Date: 15 June 2023 10:17
== END | disposition home or self-care (01) ==
LOC: RADECHMAIN 12:47
PROVIDERS: ATTEND Family Medicine
DX: I08.1 Rheumatic disorders of both mitral and tricuspid valves (principal); R94.31 Abnormal electrocardiogram [ECG] [EKG]
CPT/HCPCS: 93306